=== PATIENT | female | born 1960 | race Caucasian/White ===

== ENCOUNTER 2019-05-02 02:11 | Emergency (ER) | payer MEDICARE, MEDICAID ==
[~2019-05-02] VITALS: Ht 172.7 cm; Wt 53.0 kg
[2019-05-02 02:12] VITALS: BP 145/96
[2019-05-02] MEDS ORDERED: ACYC400T PO (04:53)
== END 2019-05-02 04:40 | disposition home or self-care (01) ==
LOC: ER 02:13
DX: I50.9 Heart failure, unspecified (principal); J44.9 Chronic obstructive pulmonary disease, unspecified; F15.10 Other stimulant abuse, uncomplicated
CPT/HCPCS: 93005; 99283; J7030

== ENCOUNTER 2019-10-13 14:00 | Observation (INO) | payer MEDICARE, MEDICAID ==
[~2019-10-13] VITALS: Ht 172.7 cm; Wt 51.1 kg
[2019-10-13] VITALS (10 sets, daily range): BP systolic 122–142; BP diastolic 91–101
[2019-10-13] MEDS ORDERED: LORazepam 0.5 MG tablet PO PRN (14:15)
[2019-10-13] MEDS ORDERED: diphenhydrAMINE 25mg capsule PO PRN (14:15)
[2019-10-13] MEDS: normal saline 1,000 ML IV SCH (14:15)
[2019-10-13] MEDS ORDERED: FLUT1BLS4 INH (15:00)
[2019-10-13] MEDS ORDERED: MELO-100 PO (15:00)
[2019-10-13] MEDS ORDERED: OXYB5TAB16 PO (15:00)
[2019-10-13] MEDS ORDERED: ESCI10TA54 PO (15:00)
[2019-10-13] MEDS ORDERED: FURO-149 PO (15:00)
[2019-10-13] MEDS ORDERED: CARV3.12 PO (15:00)
[2019-10-13] MEDS ORDERED: LEVA15HF4 INH (15:00)
[2019-10-13] MEDS ORDERED: VALS40TA2 PO (15:00)
[2019-10-13] MEDS ORDERED: pneumococcal 23-VAL P-sac vacc 25 mcg/0.5ml vial IMVAC ONE (15:45)
[2019-10-13] MEDS ORDERED: FLU VACC QS2019-20 36MOS UP/PF 60 MCG/0.5 ML SYRINGE IMVAC ONE (15:45)
[2019-10-13] MEDS ORDERED: midazolam 2 mg/2 ml injection ONE (18:44)
[2019-10-13] MEDS ORDERED: LIDOcaine 1% (10mg/ml)w/preservative injection 20ml MDV ONE (18:45)
[2019-10-13] MEDS ORDERED: fentaNYL/PF 50MCG/1 ML 2ML syringe ONE (18:45)
[2019-10-13] MEDS ORDERED: iohexol 350MG/ML 100ml bottle IV ONE (18:45)
--- NOTE | 2019-10-13 19:45 | NUR ---
I have received report from ROSEMARIE Guan and had the opportunity to ask questions and assume patient care. Per report: Patient had a right groin approach with manual hold closure heart cath procedure done by Dr. Evans. No stents were placed. Patient received 2 of versed and 100 of fentanyl. Patient had cold sweats and was snoring. Patient has a history of COPD, CHF, Cardiomyopathy, aortic insufficiency.
--- NOTE | 2019-10-13 19:50 | NUR ---
Patient arrived to [facility] unit room 314 with kathy. Patient arrived with all known belongings. Patient was sleeping when she arrived and would arouse to voice and some touching. Right groin dressing, CDI, vital signs stable. Will continue to monitor.
--- NOTE | 2019-10-13 21:00 | NUR ---
Patient is still arousable by name and touch. Patient is not ready to leave at this time. will continue to monitor.
[2019-10-13] MEDS ORDERED: OXAZEpam 15mg capsule PO PRN (22:55)
[2019-10-13] MEDS ORDERED: ondansetron/PF 4mg/2ml inj IV PRN (22:55)
[2019-10-13] MEDS ORDERED: proCHLORperazine 10 MG/2 ml inj IV PRN (22:55)
[2019-10-13] MEDS ORDERED: HYDROcodone/acetaminophen 10/325mg tab PO PRN ×2 (22:55)
--- NOTE | 2019-10-13 23:00 | NUR ---
Patient is arousing by name and is drinking water. Patient states she does not have a ride at this time.
[2019-10-14] MEDS: normal saline 1,000 ML IV SCH (00:15)
[2019-10-14] MEDS: (Fluticasone/Umeclidin/Vilanter (Trelegy Ellipta 100-62.5-25) 1 PUFF) IH SCH ×2 (01:25→07:39)
[2019-10-14] MEDS ORDERED: albuterol 2.5 MG/3 ML nebule NEB PRN (01:25)
[2019-10-14 02:00] VITALS: BP 128/90
[2019-10-14 03:45] VITALS: BP 127/90
[2019-10-14 06:00] VITALS: BP 114/80
--- NOTE | 2019-10-14 06:38 | NUR ---
Problems reprioritized. Patient report given, questions answered & plan of care reviewed with ROSEMARIE Nguyen.
[2019-10-14] MEDS ORDERED: ESCITALOPRAM OXALATE 5 MG TABLET PO SCH (08:00)
[2019-10-14] MEDS ORDERED: losartan 25mg tablet PO SCH (08:00)
[2019-10-14] MEDS ORDERED: furosemide 40mg tablet PO SCH (08:00)
[2019-10-14] MEDS ORDERED: carVEDilol 3.125mg tablet PO SCH (08:00)
[2019-10-14] MEDS ORDERED: MELOXICAM 7.5 MG PO SCH (08:00)
--- NOTE | 2019-10-14 09:15 | NUR ---
PROVIDED PATIENT WITH DISCHARGE INSTRUCTIONS WELL DISCHARGE PACKET. NO NEW PRESCRIPTIONS. PATIENT AWARE SHE WILL CONTINUE ALL HOME MEDICATIONS. RIGHT GROIN SITE CLEAN DRY AND INTACT WITH NO BLEEDING OR HEMATOMA. PATIENT DENIES QUESTIONS OR CONCERNS. WILL CALL TO MAKE FOLLOW UP APPT WITH DR. RODRIGUEZ. IV REMOVED, CATHETER INTACT NO BLEEDING CLEAN GAUZE APPLIED AND SECURED WITH TAPE. PATIENT ACCOMPANIED DOWN VIA WHEELCHAIR TO GO HOME VIA PRIVATE VEHICLE.
== END 2019-10-14 09:25 | disposition home or self-care (01) ==
LOC: SSTAY O 14:00 → MED 3N 19:50
PROVIDERS: ADMIT Internal Medicine Interventional Cardiology; ATTEND Internal Medicine Interventional Cardiology
DX: I50.9 Heart failure, unspecified (principal); I42.9 Cardiomyopathy, unspecified; R94.39 Abnormal result of other cardiovascular function study; J44.9 Chronic obstructive pulmonary disease, unspecified; I35.0 Nonrheumatic aortic (valve) stenosis; Z79.899 Other long term (current) drug therapy
CPT/HCPCS: 93005; 93458; C1769; G0378; J1644; J2001; J2250; J3010; J7030; Q0163; Q2037; Q9967; 99152; A6258

== ENCOUNTER 2019-10-19 10:16 | Inpatient (IN) | payer MEDICARE, MEDICAID ==
[~2019-10-19] VITALS: Ht 172.7 cm; Wt 51.0 kg
[~2019-10-19 10:16] MED LIST: CARV3.12 PO; ESCI10TA54 PO; FLUT1BLS4 INH; FURO-149 PO; LEVA15HF4 INH; MELO-100 PO; OXYB5TAB16 PO; VALS40TA2 PO
[2019-10-19 13:37] LABS: BASOPHILS # (AUTO) 0.1 X10'3 (0-0.2); BASOPHILS % (AUTO) 0.9 % (0-1); EOSINOPHILS # (AUTO) 0.3 X10'3 (0-0.9); EOSINOPHILS % (AUTO) 3.8 % (0-6); HEMATOCRIT 36.3 % (35.0-45.0); HEMOGLOBIN 11.7 g/dl (12.0-16.0); LYMPHOCYTES # (AUTO) 1.7 X10'3 (1.1-4.8); LYMPHOCYTES % (AUTO) 24.4 % (21-51); MEAN CORPUSCULAR HEMOGLOBIN 27.2 PG (27.0-31.0); MEAN CORPUSCULAR HGB CONC 32.2 g/dL (33.0-36.5); MEAN CORPUSCULAR VOLUME 84.5 FL (78-98); MONOCYTES # (AUTO) 0.8 X10'3 (0-0.9); MONOCYTES % (AUTO) 11.9 % (2-12); NEUTROPHILS # (AUTO) 4.1 X10'3 (1.8-7.7); PLATELET COUNT 313 X10'3 (140-440); RED CELL DISTRIBUTION WIDTH 22.6 % (11.5-14.5)
[2019-10-19 13:44] LABS: PARTIAL THROMBOPLASTIN TIME 29 SECONDS (22-32)
[2019-10-19 13:45] LABS: ALANINE AMINOTRANSFERASE 21 U/L (12-78); ALBUMIN 2.4 G/DL (3.4-5.0); ALBUMIN/GLOBULIN RATIO 0.5 (1.1-1.5); ALKALINE PHOSPHATASE 113 IU/L (46-116); ANION GAP 4 (8-16); ASPARTATE AMINO TRANSFERASE 27 U/L (10-37); BLOOD UREA NITROGEN 12 MG/DL (7-18); CALCIUM 8.3 MG/DL (8.5-10.1); CHLORIDE 107 MMOL/L (99-107); CREATININE 0.86 MG/DL (0.40-0.90); GLUCOSE 89 MG/DL (70-104); POTASSIUM 4.1 MMOL/L (3.5-5.1); SODIUM 141 MMOL/L (135-145); TOTAL CARBON DIOXIDE 30.4 MMOL/L (24-32); eGFR 67 ML/MIN
[2019-10-19] MEDS ORDERED: ketorolac tromethamine 15mg/ml inj. IM ONE (14:15)
[2019-10-19] MEDS ORDERED: ondansetron/PF 4mg/2ml inj IV PRN (14:20)
[2019-10-19] MEDS ORDERED: morphine 2 MG/ML inj. syringe IV PRN (14:20)
[2019-10-19] MEDS ORDERED: HYDROcodone/acetaminophen 5mg/325mg tablet PO PRN (14:20)
[2019-10-19] MEDS ORDERED: acetaminophen 325mg tablet PO PRN ×2 (14:20)
[2019-10-19] MEDS ORDERED: magnesium hydroxide 30ml (MOM) UD suspension PO PRN (14:20)
[2019-10-19] MEDS ORDERED: mag hydrox/Alum hydrox/simeth 30ml oral suspension PO PRN (14:20)
[2019-10-19] MEDS ORDERED: Thrombin (Bovine) 5,000 unit vial TP ONE (14:55)
[2019-10-19] MEDS: morphine 2 MG/ML inj. syringe IV PRN ×2 (15:06→19:02)
[2019-10-19 15:10] VITALS: BP 137/78
--- NOTE | 2019-10-19 15:11 | NUR ---
IR team at bedside for procedure.
--- NOTE | 2019-10-19 15:22 | NUR ---
ADMIT REPORT NOTE: RECEIVED REPORT FROM ROSEMARIE BRYANT IN ER
[2019-10-19 15:25] VITALS: BP 101/65
[2019-10-19 18:00] VITALS: BP 103/71
--- NOTE | 2019-10-19 18:20 | NUR ---
SHIFT CHANGE NOTE Problems reprioritized. Patient report given, questions answered & plan of care reviewed with ROSEMARIE GREY.
--- NOTE | 2019-10-19 18:22 | NUR ---
PATIENT STATES WHEN SHE DOES NEED HELP WHEN SHE HAS RESPIRATORY ISSUES, HAS A [employer] WORKER THAT COMES TO THE HOUSE TO HELP HER Addendum: 10/19/19 at 1825 by Carol Ann Anaya RN Amended: Links added.
--- NOTE | 2019-10-19 18:36 | NUR ---
Assumed care of patient with verbal report from Carol Ann HOUSTON. Patient resting comfortably, woke easily. Sats 89%, O2 placed on .5L. Call light in reach.
[2019-10-19] MEDS ORDERED: FLU VACC QS2019-20 36MOS UP/PF 60 MCG/0.5 ML SYRINGE IMVAC ONE (18:55)
[2019-10-19] MEDS ORDERED: pneumococcal 23-VAL P-sac vacc 25 mcg/0.5ml vial IMVAC ONE (18:55)
[2019-10-20] MEDS: morphine 2 MG/ML inj. syringe IV PRN ×2 (01:59→07:17)
--- NOTE | 2019-10-20 06:23 | NUR ---
Patient in room [facility]. I have received report from ROSEMARIE GREY and had the opportunity to ask questions and assume patient care.
--- NOTE | 2019-10-20 06:27 | NUR ---
Problems reprioritized. Patient report given, questions answered & plan of care reviewed with Katherine HOUSTON.
[2019-10-20 07:00] VITALS: BP 127/101
[2019-10-20] MEDS ORDERED: HYDR-4383 PO (10:13)
[2019-10-20 11:01] VITALS: BP 136/91
--- NOTE | 2019-10-20 12:02 | NUR ---
patient is a&o with no complaints. discussed with patient discharge instructions and prescription for norco. patient verbalizes understanding of teaching. patient has all personal belongings packed and ready for dc however patient is working on getting transportation home.
--- NOTE | 2019-10-20 13:39 | NUR ---
patient daughter here to greens picker patient. patient dc'd with all personal belongings via wheelchair accompanied by [facility] staff. patient alert and oriented and in no apparent acute distress at time of dc.
== END 2019-10-20 13:35 | disposition home or self-care (01) | DRG 301 ==
LOC: ER 10:17 → ED HOLD 14:40 → SUR 3N 15:35 → OBSVTOIN 10-20 09:30
PROVIDERS: ADMIT Internal Medicine; ATTEND Internal Medicine
PROC: 3E02340 Introduction of Influenza Vaccine into Muscle, Percutaneous Approach (ICD-10-PCS; principal; 2019-10-19)
PROC: 3E0234Z Introduction of Serum, Toxoid and Vaccine into Muscle, Percutaneous Approach (ICD-10-PCS; 2019-10-19)
DX: T81.718A Complication of other artery following a procedure, not elsewhere classified, initial encounter (principal); I72.4 Aneurysm of artery of lower extremity; Y84.0 Cardiac catheterization as the cause of abnormal reaction of the patient, or of later complication, without mention of misadventure at the time of the procedure; J44.9 Chronic obstructive pulmonary disease, unspecified; F32.9 Major depressive disorder, single episode, unspecified; G89.29 Other chronic pain; M54.9 Dorsalgia, unspecified; I50.9 Heart failure, unspecified; Z83.3 Family history of diabetes mellitus; Z82.3 Family history of stroke; Y92.89 Other specified places as the place of occurrence of the external cause; Z79.899 Other long term (current) drug therapy; Z86.73 Personal history of transient ischemic attack (TIA), and cerebral infarction without residual deficits; Z23 Encounter for immunization
CPT/HCPCS: 36002; 80053; 85025; 85610; 85730; 87081; 90732; 93926; 96372; 96374; 99285; C1894; G0378; J1885; J2270; Q2037